=== PATIENT | male | born 1940 | race Caucasian/White ===

== ENCOUNTER → 2016-03-19 | Outpatient (CLI) | payer OTHER ==
--- NOTE | 2016-03-19 11:38 | US ---
Ultrasound Left Breast History: Palpable abnormality in left breast retroareolar region. Drug-induced gynecomastia. T50.901A . Technique: Ultrasound imaging of the left breast retroareolar region and right breast for comparison was performed by the barge loader and myself. Findings: In the left breast retroareolar region there is asymmetric soft tissue measuring 3.5 x 3.3 x 1 cm, probably representing asymmetric gynecomastia. This is not identified in the right breast ret roareolar region. No evidence of shadowing irregular mass or focal fluid collection. Impression: 1. BI-RADS 0: Needs further imaging. 2. Probable left breast retroareolar gynecomastia on ultrasound. 3. Recommend bilateral diagnostic mammogram for further evaluation. Findings and recommendations have been discussed with the patient, who agrees with the plan.
== END ==
LOC: BRMIMAGING 09:56
PROVIDERS: ATTEND Family Medicine
DX: N63 Unspecified lump in breast (principal)
CPT/HCPCS: 76641-PO